=== PATIENT | male | born 1965 ===

== ENCOUNTER 2018-01-16 21:54 | Emergency (ER) | payer SELFPAY ==
[2018-01-16 22:34] LABS: CHLORIDE,CL 102 mmol/L (101-111); SODIUM,NA 136 mmol/L (135-145)
[2018-01-16] MEDS ORDERED: GI Cocktail Oral Solution 30 ML PO ONE (22:48)
[2018-01-16] MEDS ORDERED: fentaNYL 100 MCG/2 ML SDV IVPUSH ONE (22:49)
[2018-01-16] MEDS ORDERED: Iopamidol 612 MG/ML 75 ML Bottle IVPUSH ONE (23:07)
[2018-01-16] MEDS ORDERED: Iopamidol 612 MG/ML 50 ML SDV IVPUSH ONE (23:08)
[2018-01-17] MEDS ORDERED: Famotidine 20 MG/2 ML SDV IVPUSH ONE (00:25)
--- NOTE | 2018-01-17 00:33 | EDM.PDOC ---
ED HPI GENERAL MEDICAL PROBLEM - General Chief Complaint: Abdominal Pain Stated Complaint: CAME BY AMBULANCE,ABD PAIN Time Seen by Provider: 01/16/18 22:00 Source of Information: Reports: Patient, EMS Notes Reviewed History Limitations: Reports: No Limitations - History of Present Illness INITIAL COMMENTS - FREE TEXT/NARRATIVE: ED with c/o severe abdominal pain. Patient gives history that is originally from [place] but came here "to ", states he was told by his DrZee that had an aneurysm but does not know where it is at, and that he had only 2-4 months to live. Pain in epigastric area started after eating ham that had been left on counter. No vomiting or diarrhea. States that he has been off of all of his meds for 2-3 weeks as no point in taking them. On medication for diabetes, mood disorder, and seizure disorder, unsure what medications were. (Limited medication profile available on [place] [employer] drug monitoring. Patient had been receiving routine Rx for oxycodone and gabapentin since 01/16 through [facility]. Middle Abdomen Pain Score (Numeric/FACES): 8 - Related Data Allergies Allergy/AdvReac Type Severity Reaction Status Date / Time bee venom protein (honey bee) Allergy Anaphylactic Verified 01/16/18 22:52 Shock tramadol Allergy Anaphylactic Verified 01/16/18 22:52 Shock Home Meds: Home Meds . [No Known Home Meds] 01/16/18 [History] Past Medical History Cardiovascular History: Reports: Other (See Below) Other Cardiovascular History: patient states he has an aneurysm, unknown location Genitourinary History: Reports: Renal Disease Neurological History: Reports: Seizure Psychiatric History: Reports: Other (See Below) Other Psychiatric History: patient states he is on mood stablizer's so he doesn' t get upset Endocrine/Metabolic History: Reports: Diabetes, Type II Social & Family History - Tobacco Use Smoking Status *Q: Current Every Day Smoker Years of Tobacco use: 3 Packs/Tins Daily: 5 - Caffeine Use Caffeine Use: Reports: Coffee - Recreational Drug Use Recreational Drug Use: No ED ROS GENERAL - Review of Systems Review Of Systems: See Below Constitutional: Reports: No Symptoms HEENT: Reports: No Symptoms Respiratory: Reports: No Symptoms Cardiovascular: Reports: No Symptoms GI/Abdominal: Reports: Abdominal Pain : Reports: No Symptoms Musculoskeletal: Reports: No Symptoms Skin: Reports: No Symptoms Neurological: Reports: No Symptoms Psychiatric: Reports: Mood Lability (reported hx) ED EXAM, GI/ABD - Physical Exam Exam: See Below Exam Limited By: No Limitations General Appearance: Alert, Mild Distress, Obese (morbid) Eyes: Bilateral: EOMI Ears: Normal External Exam Nose: Normal Inspection Throat/Mouth: Normal Inspection Head: Atraumatic, Normocephalic Neck: Normal Inspection Respiratory/Chest: No Respiratory Distress, Lungs Clear, Normal Breath Sounds, Chest Non-Tender Cardiovascular: Normal Peripheral Pulses, Regular Rate, Rhythm GI/Abdominal Exam: Normal Bowel Sounds, Soft, Tender (epigastric) Back Exam: Normal Inspection Extremities: Normal Inspection Psychiatric: Other (labile mood, pleasant to offensive in matter of seconds. ) Skin Exam: Warm, Dry, Intact, Jaundice (mild scleral icterus) Course - Vital Signs Last Recorded V/S: Last Vital Signs Temp 99.6 F 01/16/18 21:54 Pulse 71 01/16/18 21:54 Resp 19 01/16/18 21:54 BP 141/70 H 01/16/18 21:54 Pulse Ox 98 01/16/18 21:54 - Orders/Labs/Meds Orders: Active Orders 24 hr Category Date Time Status EKG 12 Lead [EKG Documentation Completion] [RC] URGENT Care 01/16/18 21:59 Active Labs: Laboratory Tests 01/16/18 01/16/18 01/16/18 Range/Units 22:08 22:08 22:08 WBC 7.1 (5.0-10.0) 10^3/uL RBC 5.35 (4.6-6.2) 10^6/uL Hgb 15.1 (14.0-18.0) g/dL Hct 45.2 (40.0-54.0) % MCV 84.5 (80-100) fL MCH 28.2 (27.0-34.0) pg MCHC 33.4 (33.0-35.0) g/dL Plt Count 206 (150-450) 10^3/uL Neut % (Auto) 83.6 H (42.2-75.2) % Lymph % (Auto) 10.8 L (20.5-50.1) % [place] % (Auto) 5.1 (2-8) % Eos % (Auto) 0.4 L (1.0-3.0) % Baso % (Auto) 0.1 (0.0-1.0) % PT 10.2 (9.0-12.0) SEC INR 1.0 (0.9-1.2) Sodium 136 (135-145) mmol/L Potassium 4.3 (3.6-5.0) mmol/L Chloride 102 (101-111) mmol/L Carbon Dioxide 27.0 (21.0-31.0) mmol/L Anion Gap 11.3 BUN 15 (7-18) mg/dL Creatinine 0.7 (0.6-1.3) mg/dL Est Cr Clr Drug Dosing TNP Estimated GFR (MDRD) > 60 BUN/Creatinine Ratio 21.42 Glucose 231 H (74-105) mg/dL Lactic Acid (0.5-2.2) mmol/L Calcium 8.8 (8.4-10.2) mg/dl Magnesium 1.7 L (1.8-2.5) mg/dL Total Bilirubin 2.1 H (0.2-1.0) mg/dL AST 189 H (10-42) IU/L ALT 207 H (10-60) IU/L Alkaline Phosphatase 82 (42-121) IU/L Total Protein 8.1 (6.7-8.2) g/dl Albumin 3.6 (3.2-5.5) g/dl Globulin 4.5 Albumin/Globulin Ratio 0.80 Urine Color (YELLOW) Urine Appearance (CLEAR) Urine pH (5.0-9.0) Ur Specific [place] (1.005-1.030) Urine Protein (NEGATIVE) Urine Glucose (UA) (NEGATIVE) Urine Ketones (NEGATIVE) Urine Occult Blood (NEGATIVE) Urine Nitrite (NEGATIVE) Urine Bilirubin (NEGATIVE) Urine Urobilinogen (0.2-1.0) mg/dL Ur Leukocyte Esterase (NEGATIVE) Urine RBC /HPF Urine WBC (0-5/HPF) /HPF Ur Epithelial Cells /HPF Urine Bacteria (0-FEW/HPF) /HPF Urine Mucus /LPF Urine Opiates Screen (NEGATIVE) Ur Oxycodone Screen (NEGATIVE) Urine Methadone Screen (NEGATIVE) Ur Barbiturates Screen (NEGATIVE) U Tricyclic Antidepress (NEGATIVE) Ur Phencyclidine Scrn (NEGATIVE) Ur Amphetamine Screen (NEGATIVE) U Methamphetamines Scrn (NEGATIVE) Urine MDMA Screen (NEGATIVE) U Benzodiazepines Scrn (NEGATIVE) Urine Cocaine Screen (NEGATIVE) U Marijuana (THC) Screen (NEGATIVE) Ethyl Alcohol < 5 mg/dL 01/16/18 01/16/18 01/16/18 Range/Units 22:08 23:18 23:18 WBC (5.0-10.0) 10^3/uL RBC (4.6-6.2) 10^6/uL Hgb (14.0-18.0) g/dL Hct (40.0-54.0) % MCV (80-100) fL MCH (27.0-34.0) pg MCHC (33.0-35.0) g/dL Plt Count (150-450) 10^3/uL Neut % (Auto) (42.2-75.2) % Lymph % (Auto) (20.5-50.1) % [place] % (Auto) (2-8) % Eos % (Auto) (1.0-3.0) % Baso % (Auto) (0.0-1.0) % PT (9.0-12.0) SEC INR (0.9-1.2) Sodium (135-145) mmol/L Potassium (3.6-5.0) mmol/L Chloride (101-111) mmol/L Carbon Dioxide (21.0-31.0) mmol/L Anion Gap BUN (7-18) mg/dL Creatinine (0.6-1.3) mg/dL Est Cr Clr Drug Dosing Estimated GFR (MDRD) BUN/Creatinine Ratio Glucose (74-105) mg/dL Lactic Acid 1.3 (0.5-2.2) mmol/L Calcium (8.4-10.2) mg/dl Magnesium (1.8-2.5) mg/dL Total Bilirubin (0.2-1.0) mg/dL AST (10-42) IU/L ALT (10-60) IU/L Alkaline Phosphatase (42-121) IU/L Total Protein (6.7-8.2) g/dl Albumin (3.2-5.5) g/dl Globulin Albumin/Globulin Ratio Urine Color Dark yellow (YELLOW) Urine Appearance Clear (CLEAR) Urine pH 6.0 (5.0-9.0) Ur Specific [place] 1.025 (1.005-1.030) Urine Protein 30 H (NEGATIVE) Urine Glucose (UA) Negative (NEGATIVE) Urine Ketones Trace H (NEGATIVE) Urine Occult Blood Negative (NEGATIVE) Urine Nitrite Negative (NEGATIVE) Urine Bilirubin Moderate H (NEGATIVE) Urine Urobilinogen 4.0 H (0.2-1.0) mg/dL Ur Leukocyte Esterase Negative (NEGATIVE) Urine RBC 0-5 /HPF Urine WBC 0-5 (0-5/HPF) /HPF Ur Epithelial Cells Occasional /HPF Urine Bacteria Few (0-FEW/HPF) /HPF Urine Mucus Few H /LPF Urine Opiates Screen Positive H (NEGATIVE) Ur Oxycodone Screen Negative (NEGATIVE) Urine Methadone Screen Negative (NEGATIVE) Ur Barbiturates Screen Negative (NEGATIVE) U Tricyclic Antidepress Negative (NEGATIVE) Ur Phencyclidine Scrn Negative (NEGATIVE) Ur Amphetamine Screen Negative (NEGATIVE) U Methamphetamines Scrn Positive H (NEGATIVE) Urine MDMA Screen Negative (NEGATIVE) U Benzodiazepines Scrn Negative (NEGATIVE) Urine Cocaine Screen Negative (NEGATIVE) U Marijuana (THC) Screen Negative (NEGATIVE) Ethyl Alcohol mg/dL Meds: Medications Discontinued Medications Generic Name Dose Route Start Last Admin Trade Name Freq PRN Reason Stop Dose Admin Al Hydroxide/Mg Hydroxide 30 ml 01/16/18 22:48 01/16/18 22:53 Gi Cocktail PO 01/16/18 22:49 30 ml ONETIME ONE Administration Famotidine 20 mg 01/17/18 00:25 01/17/18 00:32 Pepcid IVPUSH 01/17/18 00:26 20 mg ONETIME ONE Administration Fentanyl 50 mcg 01/16/18 22:49 01/16/18 22:54 Sublimaze IVPUSH 01/16/18 22:50 50 mcg ONETIME ONE Administration Iopamidol 75 ml 01/16/18 23:07 01/16/18 23:23 Isovue-300 (61%) IVPUSH 01/16/18 23:08 75 ml ONETIME ONE Administration Iopamidol 50 ml 01/16/18 23:08 01/16/18 23:23 Isovue-300 (61%) IVPUSH 01/16/18 23:09 50 ml ONETIME ONE Administration - Radiology Interpretation Free Text/Narrative:: CT head unremarkable, CT abdomen mild dilation of bile duct , no stones noted. - Re-Assessments/Exams Free Text/Narrative Re-Assessment/Exam: Patient given results of studies, Ripped IV out and left. Patient had repeatedly denied any hx of drug use during intake questions and ROS. Urine drug screen positive for meth. Departure - Departure Time of Disposition: 00:27 Disposition: Home, Self-Care 01 Condition: Good Clinical Impression: Epigastric pain, Gall bladder inflammation - Discharge Information Instructions: Abdominal Pain, Adult, [id number] Forms: ED Department Discharge Additional Instructions: low fat bland diet avoid greasy spicy foods, follow up in clinic on thursday - My Orders Last 24 Hours: My Active Orders 01/16/18 21:59 EKG 12 Lead [EKG Documentation Completion] [RC] URGENT - Assessment/Plan Last 24 Hours: My Active Orders 01/16/18 21:59 EKG 12 Lead [EKG Documentation Completion] [RC] URGENT
== END 2018-01-17 00:39 | disposition home or self-care (01) ==
LOC: DL.ED 21:54
DX: K81.9 Cholecystitis, unspecified (principal); E11.9 Type 2 diabetes mellitus without complications; F17.210 Nicotine dependence, cigarettes, uncomplicated; Z88.5 Allergy status to narcotic agent; Z91.030 Bee allergy status
CPT/HCPCS: 36415; 70450; 71045; 74177; 80053; 80305; 81001; 83605; 83735; 85025; 85610; 93005; 96374; 96375; 99285; A9270; G0480; J3010; Q9967; 93010; S0028

== ENCOUNTER 2018-01-17 06:07 | Emergency (ER) | payer SELFPAY ==
[~2018-01-17 06:07] MED LIST: HYDROmorphone 1 MG/ML Syringe IVPUSH ONE
--- NOTE | 2018-01-17 06:55 | EDM.PDOC ---
ED HPI GENERAL MEDICAL PROBLEM - General Chief Complaint: Abdominal Pain Stated Complaint: IN BY AMBULANCE Time Seen by Provider: 01/17/18 06:20 Source of Information: Reports: Patient, EMS History Limitations: Reports: No Limitations - History of Present Illness INITIAL COMMENTS - FREE TEXT/NARRATIVE: c/o RUQ pain came back around 430, emesis x 2 at 5. Patient seen earlier tonight for same . Pain had improved and patient left. Patient's earlier ED visit patient presented with c/o abdominal pain and stated he had been told he had aneurysms and had only 2-4 months to live and had been 2 months already. Hx diabetic on insulin, mood disorder and seizure disorder, has not taken any medication for past 2-3 weeks. Stated there was no point if he was going to . Patient states he does not know where aneurysm is at. Denied any drug or alcohol use. UDS + for meth on previous visit. Abdomen Pain Score (Numeric/FACES): 10 - Related Data Allergies Allergy/AdvReac Type Severity Reaction Status Date / Time bee venom protein (honey bee) Allergy Anaphylactic Verified 01/17/18 06:22 Shock tramadol Allergy Anaphylactic Verified 01/17/18 06:22 Shock Home Meds: Home Meds . [No Known Home Meds] 01/16/18 [History] Past Medical History Cardiovascular History: Reports: Other (See Below) Other Cardiovascular History: patient states he has an aneurysm, unknown location Genitourinary History: Reports: Renal Disease Neurological History: Reports: Seizure, Other (See Below) Other Neuro History: patient states he has an aneurysm, unknown location Psychiatric History: Reports: Other (See Below) Other Psychiatric History: patient states he is on mood stablizer's so he doesn' t get upset Endocrine/Metabolic History: Reports: Diabetes, Type II Social & Family History - Tobacco Use Smoking Status *Q: Current Every Day Smoker Years of Tobacco use: 3 Packs/Tins Daily: 0.5 - Caffeine Use Caffeine Use: Reports: Coffee - Recreational Drug Use Recreational Drug Use: No ED ROS GENERAL - Review of Systems Review Of Systems: See Below Constitutional: Reports: Diaphoresis HEENT: Reports: No Symptoms Respiratory: Reports: No Symptoms Cardiovascular: Reports: No Symptoms Endocrine: Reports: No Symptoms GI/Abdominal: Reports: Abdominal Pain, Vomiting. Denies: Diarrhea, Nausea : Reports: No Symptoms Musculoskeletal: Reports: No Symptoms Skin: Reports: No Symptoms Neurological: Reports: No Symptoms Psychiatric: Reports: Mood Lability ED EXAM, GI/ABD - Physical Exam Exam: See Below Exam Limited By: No Limitations General Appearance: Alert, Mild Distress, Obese Eyes: Bilateral: EOMI Ears: Normal External Exam, Normal TMs Nose: Normal Inspection Throat/Mouth: Normal Inspection, Normal Lips Head: Atraumatic, Normocephalic Neck: Normal Inspection, Full Range of Motion Respiratory/Chest: No Respiratory Distress, Lungs Clear, Normal Breath Sounds Cardiovascular: Normal Peripheral Pulses, Regular Rate, Rhythm, Tachycardia GI/Abdominal Exam: Soft, Guarding, Tender. No: Rebound, Abnormal Bowel Sounds Back Exam: Normal Inspection Extremities: Normal Inspection Neurological: Alert, Oriented, Normal Cognition Psychiatric: Normal Affect Skin Exam: Warm, Dry, Intact, Normal Color, Tattoo(s) Course - Vital Signs Last Recorded V/S: Last Vital Signs Temp 98.1 F 01/17/18 06:08 Pulse 115 H 01/17/18 06:08 Resp 26 H 01/17/18 06:08 BP 135/82 01/17/18 06:26 Pulse Ox 98 01/17/18 06:08 - Orders/Labs/Meds Meds: Medications Discontinued Medications Generic Name Dose Route Start Last Admin Trade Name Freq PRN Reason Stop Dose Admin Hydromorphone HCl 1 mg 01/17/18 06:06 01/17/18 06:18 Dilaudid IVPUSH 01/17/18 06:07 1 mg ONETIME ONE Administration Departure - Departure Time of Disposition: 07:07 Disposition: DC/Tfer to Acute Hospital 02 Condition: Undetermined Clinical Impression: Dilated bile duct Abdominal pain Qualifiers: Abdominal location: right upper quadrant Qualified Code(s): R10.11 - Right upper quadrant pain - Discharge Information
[2018-01-17 07:21] LABS: CHLORIDE,CL 100 mmol/L (101-111); SODIUM,NA 133 mmol/L (135-145)
== END 2018-01-17 07:36 ==
LOC: DL.ED 06:07
DX: K83.8 Other specified diseases of biliary tract (principal); F17.210 Nicotine dependence, cigarettes, uncomplicated; E11.9 Type 2 diabetes mellitus without complications; Z88.5 Allergy status to narcotic agent; Z91.030 Bee allergy status; Z79.4 Long term (current) use of insulin
CPT/HCPCS: 36415; 80053; 82150; 82962; 85025; 96374; 99285; J1170